=== PATIENT | female | born 1940 | race Caucasian/White ===

== ENCOUNTER 2022-06-06 15:28 | Outpatient (REF) | payer MEDICARE, OTHER, SELFPAY ==
[2022-06-06 18:58] LABS: HCT 38.1 % (36.0-46.0); HGB 12.1 g/dL (11.2-15.7); MCH 27.8 pg (27.0-33.0); MCHC 31.8 % (32.0-36.0); MCV 87 fL (80-95); MPV 12.4 fL (8.0-11.0); Platelet Count 174 10^3/uL (130-400); RBC 4.36 10^6/uL (3.93-5.22); RDW 13.3 % (11.7-14.6); RDW-SD 42.5 fL; WBC 6.36 10^3/uL (4.4-10.8)
[2022-06-06 19:17] LABS: ALT 23 U/L (14-59); AST 26 U/L (15-37); Albumin 4.2 g/dL (3.4-5.0); Alkaline Phosphatase 106 U/L (46-116); Anion Gap 7.8 mmol/L (3-11); BUN 24 mg/dL (7-18); Bilirubin, Total 0.8 mg/dL (0.2-1.0); CO2 29.2 mmol/L (21.0-32.0); CREATININE 0.8 mg/dL (0.55-1.02); Calcium 9.4 mg/dL (8.5-10.1); Calculated LDL 169 mg/dL (<100); Chloride 105 mmol/L (98-107); Cholesterol 252 mg/dL (<200); Glucose 86 mg/dL (74-106); HDL Cholesterol 59 mg/dL (40-60); Potassium 4.2 mmol/L (3.5-5.1); Sodium 142 mmol/L (136-145); TSH 0.87 uIU/mL (0.36-3.74); Total Protein 7.8 g/dL (6.4-8.2); Triglyceride 121 mg/dL (<150)
[2022-06-06 19:58] LABS: FREE T4 1.44 ng/dL (0.76-1.46)
[2022-06-07 18:12] LABS: T3, Total 106 ng/dL (97-169)
== END 2022-06-06 15:29 | disposition home or self-care (01) ==
LOC: NCHCN 15:28
PROVIDERS: Visit Provider Physician Assistant
DX: I10 Essential (primary) hypertension (principal); E07.9 Disorder of thyroid, unspecified; K21.9 Gastro-esophageal reflux disease without esophagitis
CPT/HCPCS: 80053; 80061; 85027; 84439; 84443; 84480

== ENCOUNTER 2022-06-07 01:37 | Outpatient (CLI) | payer MEDICARE, OTHER, SELFPAY ==
--- NOTE | 2022-06-07 | DI.CT_ITS ---
Exam(s) CT HEAD WO EXAM: CT HEAD WO CLINICAL HISTORY: PERSISTENT UNI HEADACHE LT,R51.9,HYPERTENSION,I10. TECHNIQUE: Imaging Protocol: Axial computed tomography images with coronal and sagittal reformatted images were created and reviewed COMPARISON: No exams were available for comparison FINDINGS: Ventricles and Extra axial spaces: Normal in size and morphology for the patient's age. Hemorrhage: None. Cerebral parenchyma: No acute territorial infarct is identified. There are areas of decreased attenu ation in the white matter suggestive of small vessel ischemic disease. Midline shift: None. Brainstem/Cerebellum: Normal. Calvarium: Normal. Visualized Paranasal sinuses/Mastoids: There is a small mucous retention cyst or polyp in the left ma xillary sinus. The visualized paranasal sinuses are otherwise clear. The mastoid air cells are nicolle r. Soft Tissues: Unremarkable. IMPRESSION: No acute intracranial process. RADIATION DOSE DELIVERED: 613.41mGy.cm Total DLP DATA REPOSITORY: All CT scans at this facility are submitted to the National Radiology Data Registry (NRDR) Dose Index Registry (DIR) with the [employer] ([employer]). RADIATION OPTIMIZATION: All CT scans at this facility use at least one of these dose optimization te chniques: automated exposure control; mA and/or kV adjustment per patient size (includes targeted exa ms where dose is matched to clinical indication); or iterative reconstruction.
== END 2022-06-07 01:57 ==
PROVIDERS: Visit Provider Nurse Practitioner Family
DX: R51.9 Headache, unspecified (principal); I10 Essential (primary) hypertension
CPT/HCPCS: 70450

== ENCOUNTER 2022-07-29 00:06 | Outpatient (CLI) | payer MEDICARE, OTHER, SELFPAY ==
--- NOTE | 2022-07-29 10:30 | DI.DEXA_ITS ---
Exam(s) XR DEXA BONE DENSITY W/WO IVETTE EXAM: XR DEXA BONE DENSITY W/WO IVETTE CLINICAL HISTORY: POSTMENOPAUSAL STATE, Z78.0 TECHNIQUE: Routine DEXA evaluation of the lumbar spine, hip, or forearm. COMPARISON: No exams were available for comparison FINDINGS: Performed on a Hologic unit. Lateral image: No compression fracture evident. Lumbar Spine total T-score: -1.8 Hip total T-score:-1.8 Independent reading at the level of the femoral neck yields T-score of -2.3 Forearm total T-score: -2.4 IMPRESSION: Bone mineral density measures in the osteopenia range. Fracture risk is moderate. Note: Any spine fracture indicates 5x risk for subsequent spine fracture and 2x risk for subsequent h ip fracture. World Health Organization criteria for BMD interpretation classify patients: Normal...... T- Score at or above -1.0 Osteopenic... T- Score between -1.0 and -2.5 Osteoporosis... T-Score at or below -2.5
== END 2022-07-29 00:26 ==
PROVIDERS: Visit Provider Physician Assistant
DX: M85.88 Other specified disorders of bone density and structure, other site (principal); Z78.0 Asymptomatic menopausal state
CPT/HCPCS: 77080

== ENCOUNTER 2022-10-03 18:57 | Outpatient (REF) | payer MEDICARE, SELFPAY ==
[2022-10-03 18:44] LABS: TSH 1.07 uIU/mL (0.36-3.74)
== END 2022-10-03 18:58 | disposition home or self-care (01) ==
LOC: NCHCN 18:57
PROVIDERS: Visit Provider Physician Assistant
DX: E07.9 Disorder of thyroid, unspecified (principal); I10 Essential (primary) hypertension
CPT/HCPCS: 84443

== ENCOUNTER 2023-04-28 15:37 | Outpatient (REF) | payer MEDICARE, SELFPAY ==
[2023-04-28 15:00] LABS: Abs Immature Grans 0.02 10^3/uL (0.0-0.06); Absolute Basophil Count 0.04 10^3/uL (0.0-0.2); Absolute Eosinophil Count 0.12 10^3/uL (0.0-0.7); Absolute Lymphocyte Count 1.73 10^3/uL (1.2-3.4); Absolute Monocyte Count 0.69 10^3/uL (0.1-0.8); Absolute Neutrophil Count 4.85 10^3/uL (1.2-6.7); Basophils % 0.5; Eosinophils % 1.6; HCT 37.2 % (36.0-46.0); HGB 11.5 g/dL (11.2-15.7); Immature Grans % 0.3; Lymphocytes % 23.2; MCH 25.9 pg (27.0-33.0); MCHC 30.9 % (32.0-36.0); MCV 84 fL (80-95); MPV 11.9 fL (8.0-11.0); Monocytes % 9.3; Neutrophils % 65.1; Platelet Count 232 10^3/uL (130-400); RBC 4.44 10^6/uL (3.93-5.22); RDW 17.4 % (11.7-14.6); RDW-SD 53.4 fL; WBC 7.45 10^3/uL (4.4-10.8)
[2023-04-28 15:38] LABS: Anion Gap 9.2 mmol/L (3-11); BUN 23 mg/dL (7-18); CO2 27.8 mmol/L (21.0-32.0); CREATININE 0.7 mg/dL (0.55-1.02); Chloride 107 mmol/L (98-107); Estimated GFR 87.37 (mL/min/1.73m2); Glucose 92 mg/dL (74-106); Potassium 4.1 mmol/L (3.5-5.1); Sodium 144 mmol/L (136-145); TSH 1.15 uIU/mL (0.36-3.74)
== END 2023-04-28 15:38 | disposition home or self-care (01) ==
LOC: NCHCN 15:37
PROVIDERS: PCP Physician Assistant; Visit Provider Physician Assistant
DX: I10 Essential (primary) hypertension (principal); E07.9 Disorder of thyroid, unspecified
CPT/HCPCS: 80048; 84443; 85025

== ENCOUNTER 2023-06-08 14:30 | Outpatient (REF) | payer MEDICARE, OTHER, SELFPAY ==
[2023-06-08 17:12] LABS: ALT 23 U/L (14-59); AST 18 U/L (15-37); Albumin 3.9 g/dL (3.4-5.0); Alkaline Phosphatase 107 U/L (46-116); Anion Gap 6.2 mmol/L (3-11); BUN 28 mg/dL (7-18); Bilirubin, Total 0.9 mg/dL (0.2-1.0); CO2 28.8 mmol/L (21.0-32.0); CREATININE 0.8 mg/dL (0.55-1.02); Calcium 9.2 mg/dL (8.5-10.1); Calculated LDL 179 mg/dL (<100); Chloride 107 mmol/L (98-107); Cholesterol 252 mg/dL (<200); Estimated GFR 74.44 (mL/min/1.73m2); Glucose 91 mg/dL (74-106); HDL Cholesterol 57 mg/dL (40-60); Sodium 142 mmol/L (136-145); TSH 1.69 uIU/mL (0.36-3.74); Total Protein 7.3 g/dL (6.4-8.2); Triglyceride 81 mg/dL (<150)
== END 2023-06-08 14:31 | disposition home or self-care (01) ==
LOC: NCHCN 14:30
PROVIDERS: PCP Physician Assistant; Visit Provider Physician Assistant
DX: I10 Essential (primary) hypertension (principal); E78.5 Hyperlipidemia, unspecified; E07.9 Disorder of thyroid, unspecified
CPT/HCPCS: 80053; 80061; 84443

== ENCOUNTER 2023-06-20 06:03 | Emergency (ER) | payer MEDICARE, OTHER, SELFPAY ==
[2023-06-20 06:08] VITALS: BP 194/68; PULSE 100; RESP 16; TEMP 36.6; O2SAT 100
--- NOTE | 2023-06-20 06:24 | W.ED.GENAD ---
HPI General Mode of arrival: ambulatory. Date/Time Provider Initiated Documentation: 06/20/23 06:04. Limitations to Documentation: no limitations. Information obtained by: patient. HPI Narrative: 82yo F with hx of hypothyroid, HTN, osteopenia, presenting for acute right foot pain. Yesterday while standing talking on the phone she took a step and noted sudden severe pain at the top of her right foot. Was unable to bear weight on that foot at that time. Noted a lump on the top her foot. She did not fall. No injury to the foot or ankle; did not roll or twist her ankle. Took tylenol and ibuprofen, tried ice and elevation. This morning pain persists though she is now able to bear some weight on it. Swelling his become more diffuse and shifted lower. She has pain when she tries to plantarflex. No numbness or tingling to foot or ankle. She is otherwise in her usual state of health with no fevers, chills, rash, chest pain, shortness of breath, nausea, vomiting, lightheadedness, or other concerns. Related Data Home Medications Medication Instructions Recorded Confirmed amlodipine 5 mg tablet 5 mg PO ONCE 06/20/23 06/20/23 levothyroxine 112 mcg tablet 112 mcg PO ONCE 06/20/23 06/20/23 (Euthyrox) losartan 100 mg tablet 100 mg PO ONCE 06/20/23 06/20/23 omeprazole 40 mg capsule,delayed 40 mg PO ONCE 06/20/23 06/20/23 release Allergies Allergy/AdvReac Type Severity Reaction Status Date / Time No Known Allergies Allergy Unverified 06/20/23 06:16 General Stated Complaint: Orthopedic LALITHA: 4 Review of Systems Narrative: see HPI Exam Narrative Exam Narrative: General: Alert, well appearing, well nourished, in no acute distress. Head: Normocephalic, atraumatic Neck: Trachea midline, ?Neck supple. Cardiac: ?No cyanosis. Well perfused. Resp: No respiratory distress. Speaking in full sentences. Abd: ?Non distended. Extremities: No peripheral edema. Top of right midfoot with mild swelling and echymosis, tender to palpation. No clear bony tenderness, marked tenderness over area of swelling. Sensation intact throughout. Significant pain with plantar flexion, mild pain with dorsiflexion and inversion/eversion. Neurologic: GCS 15. ? Moves all extremities freely against gravity Course Vital Signs Vital signs: Vital Signs Temperature 36.6 C 06/20/23 06:08 Pulse 100 H 06/20/23 06:08 Respiratory Rate 16 06/20/23 06:08 Blood Pressure 194/68 H 06/20/23 06:08 Pulse Oximetry 100 06/20/23 06:08 Temperature 36.6 C 06/20/23 06:08 Temperature Source Temporal Artery Scan 06/20/23 06:08 Pulse 100 H 06/20/23 06:08 Respiratory Rate 16 06/20/23 06:08 Respiratory Effort Normal, Non-Labored 06/20/23 06:14 Blood Pressure 194/68 H 06/20/23 06:08 Blood Pressure Position Supine 06/20/23 06:08 Pulse Oximetry 100 06/20/23 06:08 Oxygen Delivery Method Room Air 06/20/23 06:08 Oxygen Flow Rate 0 06/20/23 06:08 Pain Level 6 06/20/23 06:08 Medical Decision Making 82yo F with hx of hypothyroid, HTN, osteopenia, presenting for acute atraumatic right foot pain. Onset yesterday when she took a step; no twisting or rolling of foot or ankle. Initially unable to bear weight on that foot; now able to bear some weight. Pain with plantarflexion. Hypertensive and tachycardiac on arrival. Top of right midfoot with mild swelling and echymosis, tender to palpation. No clear bony tenderness, marked tenderness over area of swelling. Sensation intact throughout. Significant pain with plantar flexion, mild pain with dorsiflexion and inversion/eversion. History not suggestive of fracture or sprain/ligament tear however exam somewhat concerning and pt does have osteopenia. Will give tylenol and IM toradol for pain, get plain films to eval for fracture. At a minimum will need trial ambulation and likely crutches vs walker. Signed out to oncoming physican, plan to followup XR. Quality:SDOH Health Related Social Needs: No Data to Display [facility] [place] Social History Smoking/Tobacco Use Status: Never Smoking risk assessment performed?: Yes Alcohol Intake: current Alcohol Intake frequency: a few times a month Drug use: Never Substance use type: does not use Do you feel safe at home: Yes Do you feel safe in your relationship?: Yes Sign Out Sign Out Data: Sign Out Comment: Atraumatic right midfoot pain; swelling and ecchymosis. Initially unable to bear weight, now can bear some weight. Given tylenol, toradol. Pending XR. Last updated by Lyndsey Austin MD at 06/20/23 07:18 Discharge Plan Discharge Details Chief Complaint: Orthopedic Primary Care Provider: Hugo Bojorquez ED Provider: Lyndsey Austin Home Meds and New Rx's Prescriptions: No Action levothyroxine [Euthyrox] 112 mcg tablet 112 mcg PO ONCE losartan 100 mg tablet 100 mg PO ONCE amlodipine 5 mg tablet 5 mg PO ONCE omeprazole 40 mg capsule,delayed release(DR/EC) 40 mg PO ONCE
--- NOTE | 2023-06-20 06:45 | DI.RAD_ITS ---
Exam(s) XR ANKLE RT COMPLETE XR FOOT RT COMPLETE EXAM: XR FOOT RT COMPLETE and XR ankle RT complete CLINICAL HISTORY: midfoot pain, swelling, echymosis. TECHNIQUE: 2D digital imaging was performed of the right foot. Six images were obtained. AP, obliq ue and lateral views were obtained. COMPARISON: CR XR ANKLE RT COMPLETE from 06/20/2023 FINDINGS: BONES: No acute fracture is present. No bony destructive lesion is seen. JOINTS: No dislocation present. Degenerative changes are seen at the 1st MTP joint with joint space n arrowing and osteophytes. The ankle mortise is well maintained. SOFT TISSUE: Normal. IMPRESSION: 1. No acute fracture or dislocation in the foot or ankle. 2. Degenerative changes seen at the 1st MTP joint. DATA REPOSITORY: RADIATION DOSE DELIVERED:
[2023-06-20] MEDS: Ketorolac 15 MG/ML VIAL IM (07:05)
[2023-06-20] MEDS: Acetaminophen 500 MG TAB 1000 MG PO (07:05)
== END 2023-06-20 08:48 | disposition home or self-care (01) ==
PROVIDERS: Emergency Provider Emergency Medicine; PCP Physician Assistant
DX: M79.671 Pain in right foot (principal); I10 Essential (primary) hypertension
CPT/HCPCS: 99283; 73610; 73630; J1885

== ENCOUNTER → 2023-08-14 13:37 | Outpatient (CLI) | payer MEDICARE, OTHER, SELFPAY ==
--- NOTE | 2023-08-14 | DI.RAD_ITS ---
Exam(s) XR KNEE RT 3V AP,LAT,MEHUL EXAM: XR KNEE RT 3V AP,LAT,MEHUL CLINICAL HISTORY: RT KNEE PAIN, M25.561. TECHNIQUE: 2D digital imaging was performed. COMPARISON: No exams were available for comparison FINDINGS: Four views. There is no evidence of acute fracture and there are no degenerative changes evident. There is a rufina nt effusion noted which may signify an internal derangement. IMPRESSION: No significant osseous findings. Also no degenerative changes evident. There is a joint effusion which may signify an internal derangement. DATA REPOSITORY: RADIATION DOSE DELIVERED:
== END ==
PROVIDERS: PCP Physician Assistant; Visit Provider Nurse Practitioner Family
DX: M25.561 Pain in right knee (principal)
CPT/HCPCS: 73562

== ENCOUNTER 2024-06-03 16:56 | Outpatient (REF) | payer MEDICARE, OTHER, SELFPAY ==
[2024-06-03 16:29] LABS: Abs Immature Grans 0.02 10^3/uL (0.0-0.06); Absolute Basophil Count 0.04 10^3/uL (0.0-0.2); Absolute Eosinophil Count 0.08 10^3/uL (0.0-0.7); Absolute Lymphocyte Count 1.33 10^3/uL (1.2-3.4); Absolute Monocyte Count 0.43 10^3/uL (0.1-0.8); Basophils % 0.6 %; Eosinophils % 1.2 %; HCT 41.2 % (36.0-46.0); HGB 13.1 g/dL (11.2-15.7); Immature Grans % 0.3 %; Lymphocytes % 19.6 %; MCHC 31.8 % (32.0-36.0); MCV 95 fL (80-95); MPV 11.5 fL (8.0-11.0); Monocytes % 6.3 %; Platelet Count 182 10^3/uL (130-400); RBC 4.36 10^6/uL (3.93-5.22); RDW 13.3 % (11.7-14.6); RDW-SD 46.2 fL
[2024-06-03 17:04] LABS: Anion Gap 3.9 mmol/L (3-11); BUN 30 mg/dL (7-18); CO2 32.1 mmol/L (21.0-32.0); CREATININE 0.8 mg/dL (0.55-1.02); Calcium 9.4 mg/dL (8.5-10.1); Calculated LDL 186 mg/dL (<100); Chloride 107 mmol/L (98-107); Cholesterol 265 mg/dL (<200); Estimated GFR 73.98 (mL/min/1.73m2); Glucose 97 mg/dL (74-106); HDL Cholesterol 61 mg/dL (40-60); Potassium 4.2 mmol/L (3.5-5.1); Sodium 143 mmol/L (136-145); TSH 8.18 uIU/mL (0.36-3.74); Triglyceride 93 mg/dL (<150)
== END 2024-06-03 16:57 | disposition home or self-care (01) ==
LOC: NCHCN 16:56
PROVIDERS: PCP Physician Assistant; Visit Provider Physician Assistant
DX: I10 Essential (primary) hypertension (principal)
CPT/HCPCS: 80048; 80061; 84443; 85025

== ENCOUNTER 2024-09-20 21:55 | Outpatient (REF) | payer MEDICARE, OTHER, SELFPAY ==
[2024-09-20 21:22] LABS: ALT 23 U/L (14-59); TSH 0.62 uIU/mL (0.36-3.74)
== END 2024-09-20 21:56 | disposition home or self-care (01) ==
LOC: NCHCN 21:55
PROVIDERS: PCP Physician Assistant; Visit Provider Physician Assistant
DX: E03.9 Hypothyroidism, unspecified (principal); E78.5 Hyperlipidemia, unspecified
CPT/HCPCS: 84443; 84460

== ENCOUNTER 2025-01-06 16:07 | Outpatient (REF) | payer MEDICARE, OTHER, SELFPAY ==
[2025-01-06 19:49] LABS: Calculated LDL 98 mg/dL (<100); Cholesterol 171 mg/dL (<200); HDL Cholesterol 52 mg/dL (>or=50); Triglyceride 107 mg/dL (<150)
== END 2025-01-06 16:08 | disposition home or self-care (01) ==
LOC: NCHCN 16:07
PROVIDERS: PCP Physician Assistant; Visit Provider Physician Assistant
DX: E78.5 Hyperlipidemia, unspecified (principal)
CPT/HCPCS: 80061

== ENCOUNTER → 2025-02-24 13:35 | Outpatient (BNVA) | payer MEDICARE, OTHER, SELFPAY | PROVIDERS: PCP Physician Assistant; Referring Provider Physician Assistant; Visit Provider Podiatrist | DX: L60.0 Ingrowing nail (principal); M79.672 Pain in left foot | CPT/HCPCS: 11750 ==

== ENCOUNTER → 2025-03-19 11:19 | Outpatient (BNVA) | payer MEDICARE, OTHER, SELFPAY | PROVIDERS: PCP Physician Assistant; Referring Provider Physician Assistant; Visit Provider Podiatrist | DX: L60.0 Ingrowing nail (principal); L60.3 Nail dystrophy; B35.1 Tinea unguium; M79.672 Pain in left foot | CPT/HCPCS: 99214 ==

== ENCOUNTER 2025-04-22 14:44 | Outpatient (REF) | payer MEDICARE, OTHER, SELFPAY ==
[2025-04-22 18:51] LABS: HCT 35.9 % (36.0-46.0); HGB 11.6 g/dL (11.2-15.7); MCH 28.6 pg (27.0-33.0); MCHC 32.3 % (32.0-36.0); MCV 89 fL (80-95); MPV 11.2 fL (8.0-11.0); Platelet Count 165 10^3/uL (130-400); RBC 4.05 10^6/uL (3.93-5.22); RDW 13.1 % (11.7-14.6); RDW-SD 43.1 fL; WBC 7.14 10^3/uL (4.4-10.8)
[2025-04-22 18:56] LABS: Anion Gap 10.9 mmol/L (3-11); BUN 24 mg/dL (9-23); CO2 25.1 mmol/L (20.0-31.0); Calcium 8.9 mg/dL (8.3-10.6); Chloride 110 mmol/L (98-107); Glucose 97 mg/dL (74-106); Potassium 4.0 mmol/L (3.5-5.1); Sodium 146 mmol/L (136-145)
[2025-04-22 18:59] LABS: TSH 0.21 uIU/mL (0.55-4.78)
== END 2025-04-22 14:45 | disposition home or self-care (01) ==
LOC: NCHCN 14:44
PROVIDERS: PCP Physician Assistant; Visit Provider Physician Assistant
DX: E03.9 Hypothyroidism, unspecified (principal); R60.0 Localized edema; I10 Essential (primary) hypertension
CPT/HCPCS: 80048; 85027; 83880; 84443